=== PATIENT | male | born 1975 | race Caucasian/White ===

== ENCOUNTER 2025-02-02 18:37 | Emergency (ER) | payer OTHER, SELFPAY ==
[2025-02-02 18:40] VITALS: BP 174/99
[2025-02-02 18:58] LABS: Hematocrit 40.7 % (39.0-52.0); Hemoglobin 13.9 g/dL (13.0-18.0); Mean Corp Hgb Conc. 34.2 g/dL (33.0-37.0); Mean Corpuscular Volume 87.2 fL (80.0-94.0); Nucleated Red Blood Cells % 0 % (-); Platelet Count 194 10^3/uL (130-400); Red Cell Dist. Width 11.9 % (11.5-14.5)
[2025-02-02 19:21] LABS: ALT (SGPT) 33 U/L (0-50); AST (SGOT) 28 U/L (17-59); Albumin 4.9 g/dl (3.5-5.0); Alkaline Phosphatase 64 U/L (38-126); Blood Urea Nitrogen 16 mg/dl (9-20); Calcium 10.2 mg/dl (8.4-10.2); Carbon Dioxide 27 mmol/L (22-30); Chloride 103 mmol/L (98-107); Glucose 96 mg/dl (70-99); Potassium 4.2 mmol/L (3.5-5.1); Sodium 138 mmol/L (135-145); Total Protein 7.8 g/dl (6.3-8.2); eGFR > 60.00
[2025-02-02 19:32] LABS: Troponin I < 0.012 ng/ml
[2025-02-02 20:22] VITALS: BP 146/98
[2025-02-02 21:00] VITALS: BP 143/90
--- NOTE | 2025-02-02 21:34 | ED.GENMED ---
History of Present Illness
General
Chief Complaint: Chest Pain
Time Seen by Provider: 02/02/25 21:16
History of Present Illness
History of Present Illness:
49-year-old male with history of PVCs, A-fib status post ablation, and hypertension presenting to the emergency department for left-sided chest pain. Patient notes focal left-sided chest pain which started around 5 or 6 PM. Denies exertional
onset. Denies any radiation of pain. Does note that he was diagnosed with COVID 4 days ago, however those symptoms are overall improving with mild cough and resolution of fever. Denies any significant difficulty breathing. Patient currently has
a Holter monitor on due to more frequent PVCs in the past several weeks. Denies abdominal pain or GI symptoms. Denies any known history of CAD or family history. Denies additional acute medical complaints
Phy Exam
Physical Exam
Physical Exam:
General: Well-appearing, no clinical signs of dehydration, nontoxic and in no acute distress
HEENT: protecting airway
Neck: appears supple
CV: Normal heart rate, regular rhythm
Resp: No accessory muscle use, no increased work of breathing, lungs clear to auscultation bilaterally
Abd: No distention
Extremities: No deformities, no swelling
Neuro: alert, no focal neurologic deficit
: deferred
Rectal: deferred
Psych: Normal affect
Skin: Intact
Scores
Heart Score for Chest Pain Patients
STEMI patient?: No
History: Slightly or Non-Suspicious
ECG: Normal
Age: >45 - <65 years
Risk Factors: 1 or 2 Risk Factors
Troponin: </= Normal Limit
Heart Score for Chest Pain Patients: 2
Heart Score Risk: 2.5% MACE over next 6 weeks
Course
Orders/Labs/Results
Orders:
Orders
02/02/25 18:37
Electrocardiogram (*1) Urgent
Reason for Study: Chest Pain
EKG- Treatment ONCE
02/02/25 18:49
Complete Blood Count/With Diff Urgent
Comprehensive Metabolic Panel Urgent
Troponin I Urgent
02/02/25 21:31
CR Chest - 2 Views Urgent
Comment:
Reason For Exam: L-chest pain
Abnormal Lab Results
02/02/25
18:49
RBC 4.67 L 10^6/uL
(4.70-6.10)
Monocytes % 10.0 H %
(1.7-9.3)
02/02/25 18:49
02/02/25 18:49
Vital Signs
Initial and Last Documented VS:
Initial Vital Signs
Temp Pulse Resp BP Pulse Ox
97.8 F 57 18 174/99 100
02/02/25 18:40 02/02/25 18:40 02/02/25 18:40 02/02/25 18:40 02/02/25 18:40
Last Documented Vital Signs
Temp Pulse Resp BP Pulse Ox
97.8 F 56 21 143/90 97
02/02/25 18:40 02/02/25 21:45 02/02/25 21:45 02/02/25 21:00 02/02/25 21:45
MDM/Problems Addressed
MDM/Problems Addressed:
49-year-old with history of A-fib status post ablation, PVCs, hypertension presenting to the emergency department for chest wall pain. Vital signs are significant for high blood pressure, however improved without intervention.
On exam patient is resting comfortably, acute distress or discomfort. Notes that his pain has improved. EKG obtained, sinus bradycardia with PVCs, otherwise no concern for ischemia. Patient had labs obtained prior to my assessment, negative
troponin. Low risk by heart score without concern for ACS. Does note that he had a stress test 2 years ago, unremarkable. Possibly musculoskeletal from coughing, known COVID. No PE risk factors. No present difficulty breathing, hypoxia,
tachycardia. Will obtain chest x-ray imaging.
22:40 - Chest x-ray without acute cardiopulmonary disease. At this time patient dynamically stable, has close follow-up with cardiology, Holter monitor is in place. Feel stable for discharge with close and will follow-up with mechanical engineering technologist. Return
precautions discussed and patient verbalized understanding
*Pulse Oximetry
SaO2: 100
Oxygen Mode of Delivery: Room air
Patient hypoxic: no
*EKG
Interpreted by ED Provider?: Yes
EKG Intrepretation Date: 02/02/25
EKG Intrepretation Time: 21:37
Interpretation: normal
Comparison EKG: no changes (03/19/23, now PVCs)
Heart Rate: 56
Rate: bradycardiac
Rhythm: sinus and PVC's
[place]: normal axis
Interval: normal interval
QRS Pattern: normal QRS
Ischemia: no ischemia
*Critical Care Note
Total Time (30-74mins, 75-104mins- exclusive of procedures): Not Applicable
ED Attending Note
-
Portions of this chart may have been created with voice recognition software.� Occasional wrong word or��sound alike� substitutions may have occurred due to the inherent limitations of voice recognition software.
Discharge Plan
Departure
Patient Disposition: Home (Routine Discharge)
Date of Disposition: 02/02/25
Time of Disposition: 22:40
Patient with high blood pressure during this ER visit?: Yes
Condition: Good
Discharge Problem:
Chest wall pain
Instructions: Chest pain (DC)
Prescriptions:
No Action
Eliquis 5 mg tablet
5 mg PO BID Qty: 60 0RF
multivitamin Tablet
1 tab PO DAILY
dextroamphetamine-amphetamine [Adderall] 10 mg Tablet
10 mg PO NOON
dextroamphetamine-amphetamine [Adderall] 20 mg Tablet
20 mg PO DAILY
valsartan 320 mg Tablet
320 mg PO HS
flecainide 100 mg Tablet
100 mg PO BID
metoprolol succinate 25 mg Tablet Extended Release 24 Hr
25 mg PO HS
omeprazole 20 mg Tablet,Delayed Release (Dr/Ec)
20 mg PO HS
Referrals:
Etelvina Weber PA-C [Family Provider, Internal Medicine]
Angel Danielle MD [Active, Cardiology]
Activity Restrictions/Additional Instructions:
You were seen in the emergency department for chest pain
You were found to have reassuring EKG, laboratory analysis, chest x-ray imaging. We recommend that you follow-up with your mechanical engineering technologist.
Please follow-up closely with your primary care physician.
Return to the emergency department for any worsening of your symptoms, or any development of chest pain, difficulty breathing, abdominal pain with persistent vomiting and inability to tolerate food or liquid by mouth (concern for dehydration),
weakness, headache or confusion, fever greater than 100.4, or any additional symptoms that are concerning to you.
Thank you for choosing [facility].
Interventions
Interventions:
*Risk Screen - Suicide Last Done: 02/02/25 18:45
*General Assessment Last Done: 02/02/25 18:45
*Neglect/Abuse Screening Last Done: 02/02/25 18:45
*ED- Fall Risk Assessment Last Done: 02/02/25 23:19
*ED COVID-19 Vaccine History Last Done: 02/02/25 18:45
*ED Influenza Vaccine History Last Done: 02/02/25 18:45
*Nursing Disposition Last Done: 02/02/25 23:19
ED- Cardiac Assessment Last Done: 02/02/25 22:50
Discharge Date and Time
Discharge Date/Time: 02/02/25 23:20
Print Language: CHINESE
== END 2025-02-02 23:20 | disposition home or self-care (01) ==
LOC: EMR 18:37
PROVIDERS: Emergency Medicine; EMERGENCY PHYSICIAN Student in an Organized Health Care Education/Training Program; FAMILY PHYSICIAN Physician Assistant
DX: U07.1 COVID-19 (principal); R07.89 Other chest pain; I48.91 Unspecified atrial fibrillation; I10 Essential (primary) hypertension; I49.3 Ventricular premature depolarization
CPT/HCPCS: 99285; 71046; 80053; 84484; 85025; 93005

== ENCOUNTER → 2025-02-22 14:47 | Outpatient (REF) | payer OTHER, SELFPAY | LOC: HWRAD 14:47 | PROVIDERS: ATTENDING PHYSICIAN Nurse Practitioner Gerontology; FAMILY PHYSICIAN Internal Medicine | DX: E78.00 Pure hypercholesterolemia, unspecified (principal) | CPT/HCPCS: 75571 ==

== ENCOUNTER → 2025-02-28 16:52 | Outpatient (REF) | payer OTHER, SELFPAY | LOC: RAD 16:52 | DX: R91.1 Solitary pulmonary nodule (principal) | CPT/HCPCS: 71250 ==

== ENCOUNTER 2025-03-13 06:23 | Day surgery (SDC) | payer OTHER, SELFPAY ==
[2025-03-09 11:32] LABS: Hematocrit 43.3 % (39.0-52.0); Hemoglobin 14.4 g/dL (13.0-18.0); Mean Corp Hgb Conc. 33.3 g/dL (33.0-37.0); Mean Corpuscular Volume 91.0 fL (80.0-94.0); Platelet Count 188 10^3/uL (130-400); Red Cell Dist. Width 12.3 % (11.5-14.5)
[2025-03-09 11:35] LABS: INR 0.98; PT 13.5 Sec (11.4-14.6)
[2025-03-09 11:36] LABS: APTT 25.7 Sec (23.4-35.0)
[2025-03-09 12:49] LABS: Blood Urea Nitrogen 15 mg/dl (9-20); Calcium 9.5 mg/dl (8.4-10.2); Carbon Dioxide 29 mmol/L (22-30); Chloride 100 mmol/L (98-107); Glucose 98 mg/dl (70-99); Potassium 4.7 mmol/L (3.5-5.1); Sodium 139 mmol/L (135-145); eGFR > 60.00
[2025-03-09 14:08] VITALS: BMI 27.4
[2025-03-13] VITALS (7 sets, daily range): BP systolic 125–148; BP diastolic 71–90; BMI 27.4
[2025-03-13] MEDS: VENTOLIN NEBULES 2.5 MG INH (08:47)
[2025-03-13] MEDS: NSS 500 IV (08:52)
== END 2025-03-13 13:10 | disposition home or self-care (01) ==
LOC: SDS 06:23
PROVIDERS: ATTENDING PHYSICIAN Internal Medicine; FAMILY PHYSICIAN Internal Medicine
DX: R91.1 Solitary pulmonary nodule (principal); Z87.891 Personal history of nicotine dependence
CPT/HCPCS: 31629; 71045; 76000; 80048; 85027; 85610; 85730; 87070; 87102; 87116; 87205; 88112; 88173; 88305; 88333; 93005; 94640; C1887

== ENCOUNTER → 2025-03-21 09:13 | Outpatient (REF) | payer OTHER, SELFPAY | LOC: RCS 09:13 | PROVIDERS: ATTENDING PHYSICIAN Nurse Practitioner Gerontology; FAMILY PHYSICIAN Internal Medicine | DX: I34.0 Nonrheumatic mitral (valve) insufficiency (principal); I51.7 Cardiomegaly | CPT/HCPCS: 93306 ==